=== PATIENT | male | born 1970 | race Caucasian/White ===

== ENCOUNTER 2021-12-24 23:56 | Emergency (ER) | payer OTHER ==
[~2021-12-24] VITALS: Ht 180.3 cm; Wt 98.9 kg
[2021-12-25] MEDS ORDERED: CEFDINIR300 MG PO (00:22)
[2021-12-25] MEDS ORDERED: TETANUS/DIPHTHERIA TOX ADULT 0.5 ML SYR IM ONE (00:30)
[2021-12-25 00:32] VITALS: BP 150/86
[2021-12-25] MEDS ORDERED: TETANUS/DIPHTHERIA TOX ADULT 0.5 ML SYR ONE (00:38)
== END 2021-12-25 00:32 | disposition home or self-care (01) ==
LOC: FSED 12-25 00:10
DX: S01.81XA Laceration without foreign body of other part of head, initial encounter (principal); W22.8XXA Striking against or struck by other objects, initial encounter; Y92.008 Other place in unspecified non-institutional (private) residence as the place of occurrence of the external cause; F17.210 Nicotine dependence, cigarettes, uncomplicated
CPT/HCPCS: 90471; 90714; 99282